=== PATIENT | male | born 2000 | race Caucasian/White ===

== ENCOUNTER → 2021-07-19 11:11 | Outpatient (BNVA) | payer SELFPAY | PROVIDERS: Family Provider Pediatrics Adolescent Medicine; Visit Provider Family Medicine | DX: F41.1 Generalized anxiety disorder (principal); R00.2 Palpitations; R61 Generalized hyperhidrosis; Z76.89 Persons encountering health services in other specified circumstances; R03.0 Elevated blood-pressure reading, without diagnosis of hypertension; F17.290 Nicotine dependence, other tobacco product, uncomplicated | CPT/HCPCS: 80053; 84443; 85025 ==

== ENCOUNTER → 2021-08-03 09:41 | Outpatient (BNVA) | payer SELFPAY | PROVIDERS: Family Provider Pediatrics Adolescent Medicine; Visit Provider Family Medicine | DX: D69.6 Thrombocytopenia, unspecified (principal) | CPT/HCPCS: 80500; 85025 ==